=== PATIENT | female | born 1970 | race Caucasian/White ===

== ENCOUNTER 2017-02-21 17:45 | Emergency (ER) | payer MEDICARE ==
[~2017-02-21 17:45] MED LIST: ADDERALL 15 MG15 M1 PO; ADDERALL PO; BAYER ASPIRIN325 M1 PO; CALCIUM + D3 E1 EACH PO; CINNAMON PLUS1 EACH PO; ECOTRIN325 MG PO; FENOFIBRATE160 MG PO; HYDROCHLOROTHIA25 GM PO; KLONOPIN PO; LATUDA40 MG PO; LORTAB 10-3251 EACH PO; METHADONE HCL10 MG PO; METHADOSE10 MG PO; METOPROLOL TAR25 MG PO; MIRAPEX0.25 MG PO; NORCO1 TAB 10/3 PO; PHENERGAN25 M1 PO; PRILOSEC20 M1 PO; PRILOSEC20 MG PO; PROZAC PO; SIMVASTATIN40 MG PO; STOOL SOFTENER50 MG PO; VIIBRYD20 MG PO; ZANAFLEX4 M1 PO; ZOCOR PO
== END 2017-02-21 19:04 | disposition home or self-care (01) ==
LOC: CED 17:45
DX: H57.12 Ocular pain, left eye (principal); H57.8 Other specified disorders of eye and adnexa; I10 Essential (primary) hypertension; Z90.49 Acquired absence of other specified parts of digestive tract; Z88.0 Allergy status to penicillin; Z88.5 Allergy status to narcotic agent; Z79.82 Long term (current) use of aspirin; Z79.899 Other long term (current) drug therapy
CPT/HCPCS: 99283

== ENCOUNTER → 2017-06-09 | Outpatient (CLI) | payer MEDICARE | END | disposition home or self-care (01) | LOC: CECH 10:39 | DX: R60.0 Localized edema (principal); I36.1 Nonrheumatic tricuspid (valve) insufficiency | CPT/HCPCS: 93306 ==